=== PATIENT | female | born 1960 | race Caucasian/White ===

== ENCOUNTER 2023-07-13 14:35 | Emergency (ER) | payer OTHER ==
[~2023-07-13] VITALS: Ht 152.4 cm; Wt 56.7 kg
[2023-07-13 14:45] VITALS: BP_SYST 114; PULSE 65; RESP 18; TEMP 98.3; O2SAT 98
[2023-07-13] MEDS ORDERED: NS 250 ML IV ONE (17:00)
[2023-07-13] MEDS ORDERED: ACETAMINOPHEN 325 MG TABLET PO ONE (17:00)
[2023-07-13] MEDS ORDERED: TETRACAINE HCL/PF 0.5% OPHTHALMIC DROPS 4 ML OP ONE (17:15)
[2023-07-13] MEDS ORDERED: GENT5DRO7 EACH EYE (17:42)
[2023-07-13] MEDS ORDERED: NAPH15DR52 EACH EYE (17:42)
[2023-07-13 18:06] VITALS: BP_SYST 114; PULSE 65; RESP 18; TEMP 98.3; O2SAT 98
== END 2023-07-13 18:06 | disposition home or self-care (01) ==
LOC: SED 14:35
DX: H11.31 Conjunctival hemorrhage, right eye (principal); H57.89 Other specified disorders of eye and adnexa; Z79.899 Other long term (current) drug therapy
CPT/HCPCS: 99284